=== PATIENT | female | born 1985 | race African-American/Black ===

== ENCOUNTER 2017-05-02 16:43 | Emergency (ER) | payer SELFPAY ==
[~2017-05-02] VITALS: Ht 154.9 cm; Wt 58.0 kg
[2017-05-02 17:29] LABS: BASOPHILS % 0.7 % (0.0-2.0); EOSINOPHILS % 1.4 % (0.0-5.0); HEMATOCRIT. 34.2 % (36.0-48.0); HEMOGLOBIN. 11.2 g/dL (12.0-16.0); LYMPHOCYTES % 21.4 % (20.0-50.0); MEAN CORPUSCULAR HEMOGLOBIN 25.9 pg (28.0-32.0); MEAN CORPUSCULAR VOLUME 78.8 fL (81.0-99.0); MEAN PLATELET VOLUME 8.1 fl (7.4-10.4); NEUTROPHILS % 70.5 % (40.0-76.0); PLATELET 270 x1000/uL (130-400); RED BLOOD CELL COUNT 4.34 mill/uL (4.2-5.4); RED CELL DISTRIBUTION WIDTH 14.3 % (11.6-14.6)
[2017-05-02 17:47] LABS: B-HCG QUANTITATIVE < 1 mIU/mL (<3); CHLORIDE 107 mEq/L (98-107)
[2017-05-02] MEDS ORDERED: KETOROLAC 30MG/ML VIAL IV ONE (18:00)
[2017-05-02 18:07] LABS: CLARITY URINE TURBID (CLEAR); COLOR URINE RED (YELLOW); KETONES URINE TRACE (NEGATIVE); LEUKOCYTE ESTERASE URINE 3+ (NEGATIVE); NITRITE URINE POSITIVE (NEGATIVE); OCCULT BLOOD URINE 1+ (NEGATIVE); PROTEIN URINE 1+ (NEGATIVE); SPECIFIC GRAVITY URINE 1.027 (1.005-1.030); UROBILINOGEN URINE 0.2 E.U./dL (0.2-1.0)
[2017-05-02] MEDS ORDERED: SULFAMETHOXAZOLE/TRIMETHOPRIM 800/160MG TABLET PO ONE (21:30)
[2017-05-02] MEDS ORDERED: HYDROCODONE/ACETAMINOPHEN 5/325MG TABLET PO ONE (21:30)
[2017-05-02 21:38] VITALS: BP 117/67
== END 2017-05-02 21:32 | disposition home or self-care (01) ==
LOC: ER 19:44
DX: N30.00 Acute cystitis without hematuria (principal); N93.8 Other specified abnormal uterine and vaginal bleeding; F17.200 Nicotine dependence, unspecified, uncomplicated
CPT/HCPCS: 36415; 76830; 76856; 80053; 81003; 84702; 85025; 86850; 86900; 86901; 87077; 87086; 96374; 99285; J1885

== ENCOUNTER 2017-11-26 14:55 | Emergency (ER) | payer SELFPAY ==
[~2017-11-26] VITALS: Ht 157.5 cm; Wt 63.9 kg
[2017-11-26] MEDS ORDERED: ACETAMINOPHEN 325MG TABLET PO ONE (15:45)
[2017-11-26 16:40] LABS: BASOPHILS % 0.5 % (0.0-2.0); HEMATOCRIT. 32.2 % (36.0-48.0); LYMPHOCYTES % 14.2 % (20.0-50.0); MEAN CORPUSCULAR VOLUME 70.9 fL (81.0-99.0); MEAN PLATELET VOLUME 8.4 fl (7.4-10.4); MONOCYTES % 7.1 % (2.0-8.0); NEUTROPHILS % 77.2 % (40.0-76.0); PLATELET 297 x1000/uL (130-400); RED BLOOD CELL COUNT 4.54 mill/uL (4.2-5.4); RED CELL DISTRIBUTION WIDTH 17.6 % (11.6-14.6)
[2017-11-26 16:45] LABS: CHLORIDE 103 mEq/L (98-107)
[2017-11-26 17:07] LABS: B-HCG QUANTITATIVE 31253 mIU/mL (<3)
[2017-11-26 17:22] LABS: CLARITY URINE CLEAR (CLEAR); COLOR URINE YELLOW (YELLOW); KETONES URINE NEGATIVE (NEGATIVE); LEUKOCYTE ESTERASE URINE NEGATIVE (NEGATIVE); NITRITE URINE NEGATIVE (NEGATIVE); OCCULT BLOOD URINE NEGATIVE (NEGATIVE); PH URINE 5.5 (4.5-8.0); PROTEIN URINE NEGATIVE (NEGATIVE); SPECIFIC GRAVITY URINE 1.022 (1.005-1.030); UROBILINOGEN URINE 0.2 E.U./dL (0.2-1.0)
[2017-11-26 18:50] VITALS: BP 120/70
== END 2017-11-26 19:00 | disposition home or self-care (01) ==
LOC: ER 14:55
DX: O20.0 Threatened abortion (principal); Z3A.01 Less than 8 weeks gestation of pregnancy
CPT/HCPCS: 36415; 76801; 80053; 81003; 84702; 85025; 85610; 86850; 86900; 99285

== ENCOUNTER 2018-05-25 19:42 | Inpatient (IN) | payer MEDICAID ==
[~2018-05-25] VITALS: Ht 157.5 cm; Wt 72.6 kg
[2018-05-25] MEDS ORDERED: DEXT 5%/LR + PITOCIN 20UNITS/L 1,000 ML IV SCH ×2 (20:12→21:18)
[2018-05-25] MEDS ORDERED: LACTATED RINGERS 1,000 ML IV SCH (20:12)
[2018-05-25] MEDS ORDERED: LIDOCAINE HCL 1% 20ML VIAL (Pyxis) INJ INFIL SCH (20:15)
[2018-05-25] MEDS ORDERED: METHYLERGONOVINE MALEATE 0.2 MG/ML IM PRN (20:15)
[2018-05-25] MEDS ORDERED: NALOXONE HCL 0.4 MG/ML 1ML VIAL IM PRN (20:15)
[2018-05-25] MEDS ORDERED: CARBOPROST TROMETHAMINE 250 MCG/ML AMPUL IM PRN (20:15)
[2018-05-25] MEDS ORDERED: PENICILLIN G POTASSIUM 5 MMU in DEXT 5% WATER 100 ML IV SCH (21:00)
[2018-05-25] MEDS ORDERED: ACETAMINOPHEN WITH CODEINE 300/30MG TABLET PO PRN (21:30)
[2018-05-25] MEDS ORDERED: BENZOCAINE/LANOLIN/ALOE VERA SPRAY TOP PRN (21:30)
[2018-05-25] MEDS ORDERED: LANOLIN OINT 0.25 GM TUBE TOP PRN (21:30)
[2018-05-25] MEDS ORDERED: IBUPROFEN 800MG TABLET PO PRN (21:30)
[2018-05-25] MEDS ORDERED: HEMORRHOIDAL SUPP PR PRN (21:30)
[2018-05-25] MEDS ORDERED: IBUPROFEN 400MG TABLET PO PRN (21:30)
[2018-05-25] MEDS ORDERED: DIPHENHYDRAMINE 25MG CAPSULE PO PRN (21:30)
[2018-05-25] MEDS ORDERED: GLYCERIN/WITCH HAZEL LEAF MEDICATED PAD TOP PRN (21:30)
[2018-05-25] MEDS ORDERED: RHO(D) IMMUNE GLOBULIN 300 MCG/SYR IM PRN (21:30)
[2018-05-25 21:53] LABS: BASOPHILS % 0.3 % (0.0-2.0); EOSINOPHILS % 0.8 % (0.0-5.0); HEMATOCRIT. 38.5 % (36.0-48.0); HEMOGLOBIN. 12.8 g/dL (12.0-16.0); LYMPHOCYTES % 14.5 % (20.0-50.0); MEAN CORPUSCULAR VOLUME 86.9 fL (81.0-99.0); MEAN PLATELET VOLUME 9.8 fl (7.4-10.4); MONOCYTES % 6.5 % (2.0-8.0); NEUTROPHILS % 77.9 % (40.0-76.0); PLATELET 205 x1000/uL (130-400); RED BLOOD CELL COUNT 4.43 mill/uL (4.2-5.4); RED CELL DISTRIBUTION WIDTH 13.7 % (11.6-14.6)
[2018-05-25 21:58] LABS: CLARITY URINE CLEAR (CLEAR); COLOR URINE YELLOW (YELLOW); KETONES URINE NEGATIVE (NEGATIVE); LEUKOCYTE ESTERASE URINE NEGATIVE (NEGATIVE); NITRITE URINE NEGATIVE (NEGATIVE); OCCULT BLOOD URINE 1+ (NEGATIVE); PH URINE 7.5 (4.5-8.0); PROTEIN URINE NEGATIVE (NEGATIVE); SPECIFIC GRAVITY URINE 1.017 (1.005-1.030)
[2018-05-25 22:04] LABS: INR 0.9; PARTIAL THROMBOPLASTIN TIME 26.1 sec (23.4-31.0); PROTHROMBIN TIME 9.2 sec (9.1-11.1)
[2018-05-25 22:12] LABS: *BARBITURATES SCREEN URINE NEGATIVE (NEGATIVE); *BENZODIAZEPINES SCREEN URINE NEGATIVE (NEGATIVE)
[2018-05-25 22:13] LABS: *COCAINE SCREEN URINE NEGATIVE (NEGATIVE); CANNABINOID URINE SCREEN NEGATIVE (NEGATIVE); METHADONE URINE SCREEN NEGATIVE (NEGATIVE); OPIATES URINE SCREEN NEGATIVE (NEGATIVE); PHENCYCLIDINE URINE SCREEN NEGATIVE (NEGATIVE)
[2018-05-25 22:20] LABS: *AMPHETAMINES SCREEN URINE PRESUMTIVE POSITIVE (NEGATIVE)
[2018-05-25 22:33] LABS: HEPATITIS B SURFACE ANTIGEN NEGATIVE
[2018-05-25] MEDS ORDERED: TETANUS, DIPHTHERIA, PERTUSSIS VAC/PF 0.5ML (>7YR OLD) IM ONE (23:00)
[2018-05-25] MEDS ORDERED: INFLUENZA VIRUS VACCINE(AFLURIA) 0.5ML SYR IM ONE (23:00)
[2018-05-25 23:45] VITALS: BP 125/62
[2018-05-26] VITALS: BP 121/65
[2018-05-26 06:00] VITALS: BP 119/61
[2018-05-26] MEDS: FERROUS SULFATE 325MG TABLET PO SCH ×3 (07:30→17:30)
[2018-05-26 08:25] VITALS: BP 113/71
[2018-05-26] MEDS: PRENATAL VIT/FE FUMARATE/FA TABLET PO SCH (09:00)
[2018-05-26 16:00] VITALS: BP 94/58
[2018-05-26] MEDS ORDERED: DOCUSATE SODIUM 100MG CAPSULE PO SCH (21:00)
[2018-05-26 22:00] VITALS: BP 109/61
[2018-05-27 06:00] VITALS: BP 105/62
[2018-05-27] MEDS: PRENATAL VIT/FE FUMARATE/FA TABLET PO SCH (08:10)
[2018-05-31 05:19] LABS: AMPHETAMINE CONF URINE Positive (.)
== END 2018-05-27 15:40 | disposition home or self-care (01) | DRG 560 ==
LOC: OBSVTOIN 19:42 → 8 EST LDRP 19:42 → 8EST 22:05
PROVIDERS: ADMIT Specialist; ATTEND Specialist
PROC: 10D07Z6 Extraction of Products of Conception, Vacuum, Via Natural or Artificial Opening (ICD-10-PCS; principal; 2018-05-25)
DX: O99.324 Drug use complicating childbirth (principal); F15.10 Other stimulant abuse, uncomplicated; Z3A.37 37 weeks gestation of pregnancy; Z37.0 Single live birth
CPT/HCPCS: 36415; 80305; 80307; 86592; 86703; 86762; 86850; 86900; 87340; 90686; 90715; 99281; J2540; J2590; J7060

== ENCOUNTER 2020-07-22 01:24 | Emergency (ER) | payer MEDICAID ==
[~2020-07-22] VITALS: Ht 165.1 cm; Wt 73.0 kg
[2020-07-22 02:59] LABS: CLARITY URINE CLEAR (CLEAR); COLOR URINE YELLOW (YELLOW); KETONES URINE NEGATIVE (NEGATIVE); LEUKOCYTE ESTERASE URINE TRACE (NEGATIVE); NITRITE URINE NEGATIVE (NEGATIVE); OCCULT BLOOD URINE NEGATIVE (NEGATIVE); PROTEIN URINE NEGATIVE (NEGATIVE); SPECIFIC GRAVITY URINE 1.028 (1.005-1.030)
[2020-07-22] MEDS ORDERED: METR-167 MT (06:23)
[2020-07-22] MEDS ORDERED: NITR-87 MT (06:23)
[2020-07-22 06:34] VITALS: BP 120/83
== END 2020-07-22 06:36 | disposition home or self-care (01) ==
LOC: ER 01:43
DX: N30.00 Acute cystitis without hematuria (principal); N76.0 Acute vaginitis
CPT/HCPCS: 81003; 81025; 87210; 99283; Z7610